=== PATIENT | female | born 1970 | race Caucasian/White ===

== ENCOUNTER 2018-04-20 12:45 | Emergency (ER) | payer OTHER ==
[~2018-04-20] VITALS: Ht 162.6 cm; Wt 71.8 kg
[2018-04-20] MEDS ORDERED: LIDOCAINE HCL 1% 20ML VIAL (Pyxis) INJ INFIL ONE (15:00)
[2018-04-20 15:45] VITALS: BP 142/80
[2018-04-20] MEDS ORDERED: BACITRACIN ZINC OINT UDPKT TOP ONE (15:45)
== END 2018-04-20 16:26 | disposition home or self-care (01) ==
LOC: ER 12:45
DX: L03.116 Cellulitis of left lower limb (principal); Z88.0 Allergy status to penicillin; Z88.4 Allergy status to anesthetic agent
CPT/HCPCS: 10060; 99283; J3490

== ENCOUNTER 2018-04-22 17:58 | Emergency (ER) | payer OTHER ==
[~2018-04-22] VITALS: Ht 162.6 cm; Wt 57.0 kg
[2018-04-23 00:51] VITALS: BP 170/78
== END 2018-04-23 00:52 | disposition home or self-care (01) ==
LOC: ER 17:58
DX: Z48.00 Encounter for change or removal of nonsurgical wound dressing (principal); L02.211 Cutaneous abscess of abdominal wall; Z88.0 Allergy status to penicillin; Z88.8 Allergy status to other drugs, medicaments and biological substances
CPT/HCPCS: 99283